=== PATIENT | female | born 1970 | race African-American/Black ===

== ENCOUNTER → 2024-01-15 | Outpatient (CLI) | payer OTHER ==
[2024-01-16 08:15] LABS: MUMPS VIRUS IGG ANTIBODY 86.5 AU/mL (Immune >10.9); RUBELLA AB IGG-REFLAB 2.81 index (Immune >0.99); RUBEOLA (MEASLES) IGG 80.8 AU/mL (Immune >16.4)
== END | disposition home or self-care (01) ==
LOC: LABMN 14:13
PROVIDERS: ATTEND Internal Medicine
DX: Z00.00 Encounter for general adult medical examination without abnormal findings (principal)
CPT/HCPCS: 86706; 86735; 86762; 86765; 86787

== ENCOUNTER 2024-10-16 11:29 | Emergency (ER) | payer SELFPAY ==
[~2024-10-16] VITALS: Ht 165.1 cm; Wt 111.4 kg
[2024-10-16 11:36] VITALS: TEMP 97.7
[2024-10-16 11:51] LABS: APPEARANCE,URINE CLEAR (CLEAR); BILIRUBIN,URINE NEGATIVE (NEGATIVE); COLOR,URINE YELLOW (YELLOW); GLUCOSE, URINE (UA) NEGATIVE (NEGATIVE); KETONES,URINE NEGATIVE (NEGATIVE); LEUKOCYTE ESTERASE ,URINE SMALL (NEGATIVE); NITRATE,URINE NEGATIVE (NEGATIVE); OCCULT BLOOD,URINE TRACE (NEGATIVE); PH,URINE 5.5 (5.0-8.0); PROTEIN,URINE TRACE mg/dL (NEGATIVE); SPECIFIC GRAVITIY, URINE 1.026 (1.003-1.030); UROBILINOGEN,URINE <=1.0 mg/dL (<=1.0)
[2024-10-16 12:02] LABS: BACTERIA,URINE None Seen /HPF (None Seen); RBC,URINE 0-2 /HPF (0-2); SQUAMOUS EPITHELIAL CELL,UR Few /LPF (None Seen); WBC,URINE 0-2 /HPF (0-5)
[2024-10-16] MEDS: METHOCARBAMOL 500 MG TABLET PO ONE (13:32)
[2024-10-16] MEDS: KETOROLAC TROMETHAMINE 30 MG/ML VIAL IM ONE (13:33)
[2024-10-16] MEDS: LIDOCAINE 5% TRANSDERMAL PATCH TD ONE (13:33)
[2024-10-16] MEDS: ACETAMINOPHEN 325 MG TABLET PO ONE (13:33)
[2024-10-16] MEDS ORDERED: METH-812 PO (13:57)
[2024-10-16 14:00] VITALS: BP 145/90; PULSE 95; RESP 16; O2SAT 98
== END 2024-10-16 14:19 | disposition home or self-care (01) ==
LOC: EMS 11:29
DX: S92.421A Displaced fracture of distal phalanx of right great toe, initial encounter for closed fracture (principal); M54.50 Low back pain, unspecified; I10 Essential (primary) hypertension; Z88.2 Allergy status to sulfonamides; Z88.6 Allergy status to analgesic agent; Z90.721 Acquired absence of ovaries, unilateral; W22.8XXA Striking against or struck by other objects, initial encounter; Y93.89 Activity, other specified; Y92.89 Other specified places as the place of occurrence of the external cause; Y99.8 Other external cause status
CPT/HCPCS: 99284; 81001; 73660; 96372; J1885